=== PATIENT | male | born 1955 | race Caucasian/White ===

== ENCOUNTER → 2016-10-15 | Outpatient (REF) | payer OTHER ==
[2016-10-15 12:37] LABS: ALBUMIN 3.7 GM/DL (3.2-5.2); ALBUMIN/GLOBULIN RATIO 1.12 (1.00-1.93); ALKALINE PHOSPHATASE 111 U/L (45-117); ALT/SGPT 64 U/L (12-78); ANION GAP 13 MEQ/L (8-16); AST/SGOT 43 U/L (15-37); BILIRUBIN,TOTAL 0.6 MG/DL (0.2-1.0); BLOOD UREA NITROGEN 11 MG/DL (7-18); CALCIUM LEVEL 10.5 MG/DL (8.8-10.2); CARBON DIOXIDE LEVEL 24 MEQ/L (21-32); CHLORIDE LEVEL 104 MEQ/L (98-107); GLOMERULAR FILTRATION RATE > 60.0 (>49); GLUCOSE, FASTING 217 MG/DL (80-110); POTASSIUM SERUM 4.2 MEQ/L (3.5-5.1); SODIUM LEVEL 141 MEQ/L (136-145)
[2016-10-15 12:53] LABS: VITAMIN B12 LEVEL 282 PG/ML (247-911)
== END ==
LOC: M SFHCPLAZ 08:11
PROVIDERS: ATTEND Physician Assistant
DX: E11.9 Type 2 diabetes mellitus without complications (principal); Z12.5 Encounter for screening for malignant neoplasm of prostate; E53.8 Deficiency of other specified B group vitamins
CPT/HCPCS: 36415; 80053; 82607; 83036; G0103

== ENCOUNTER → 2017-02-03 | Outpatient (REF) | payer OTHER ==
[2017-02-03 12:22] LABS: ALBUMIN 3.7 GM/DL (3.2-5.2); ALBUMIN/GLOBULIN RATIO 1.09 (1.00-1.93); ALKALINE PHOSPHATASE 110 U/L (45-117); ALT/SGPT 70 U/L (12-78); ANION GAP 8 MEQ/L (8-16); AST/SGOT 38 U/L (15-37); BILIRUBIN,TOTAL 0.6 MG/DL (0.2-1.0); BLOOD UREA NITROGEN 10 MG/DL (7-18); CALCIUM LEVEL 10.4 MG/DL (8.8-10.2); CARBON DIOXIDE LEVEL 27 MEQ/L (21-32); CHLORIDE LEVEL 105 MEQ/L (98-107); CREATININE FOR GFR 0.84 MG/DL (0.70-1.30); GLOMERULAR FILTRATION RATE > 60.0 (>49); GLUCOSE, FASTING 199 MG/DL (80-110); POTASSIUM SERUM 4.2 MEQ/L (3.5-5.1); SODIUM LEVEL 140 MEQ/L (136-145); TOTAL PROTEIN 7.1 GM/DL (6.4-8.2)
== END ==
LOC: M SFHCPLAZ 08:18
PROVIDERS: ATTEND Physician Assistant
DX: E11.9 Type 2 diabetes mellitus without complications (principal)

== ENCOUNTER → 2017-02-08 | Outpatient (REF) | payer OTHER | LOC: M SFHCPLAZ 15:16 | PROVIDERS: ATTEND Physician Assistant | DX: E11.9 Type 2 diabetes mellitus without complications (principal) ==

== ENCOUNTER → 2017-05-02 | Outpatient (REF) | payer OTHER ==
[2017-05-02 12:14] LABS: ALBUMIN 3.8 GM/DL (3.2-5.2); ALBUMIN/GLOBULIN RATIO 1.06 (1.00-1.93); ALKALINE PHOSPHATASE 106 U/L (45-117); ALT/SGPT 56 U/L (12-78); ANION GAP 10 MEQ/L (8-16); AST/SGOT 34 U/L (15-37); BILIRUBIN,TOTAL 0.5 MG/DL (0.2-1.0); BLOOD UREA NITROGEN 9 MG/DL (7-18); CALCIUM LEVEL 10.9 MG/DL (8.8-10.2); CARBON DIOXIDE LEVEL 26 MEQ/L (21-32); CHLORIDE LEVEL 105 MEQ/L (98-107); CREATININE FOR GFR 0.71 MG/DL (0.70-1.30); GLOMERULAR FILTRATION RATE > 60.0 (>49); GLUCOSE, FASTING 170 MG/DL (80-110); POTASSIUM SERUM 4.4 MEQ/L (3.5-5.1); SODIUM LEVEL 141 MEQ/L (136-145); TOTAL PROTEIN 7.4 GM/DL (6.4-8.2)
== END ==
LOC: M SFHCPLAZ 08:36
PROVIDERS: ATTEND Physician Assistant
DX: E11.9 Type 2 diabetes mellitus without complications (principal)

== ENCOUNTER → 2017-08-12 | Outpatient (REF) | payer OTHER ==
[2017-08-12 13:21] LABS: ESTIMATED AVERAGE GLUCOSE 160 MG/DL (60-110); HEMOGLOBIN A1c 7.2 %
[2017-08-12 13:23] LABS: CHOLESTEROL LEVEL 211 MG/DL (<200); CHOLESTEROL RISK RATIO 5.861 (<5); HDL CHOLESTEROL 36 MG/DL (>40); LDL CHOLESTEROL 136.6 MG/DL (<100); NON-HDL-C 175 MG/DL; TRIGLYCERIDES LEVEL 192 MG/DL (<150)
[2017-08-12 14:34] LABS: MALB URINE SIEMENS 24.7 MG/L; MAU/CREAT RATIO 18.1 MCG/MG (0.0-30.0)
== END ==
LOC: M SFHCPLAZ 09:03
DX: E11.65 Type 2 diabetes mellitus with hyperglycemia (principal); E78.2 Mixed hyperlipidemia

== ENCOUNTER → 2018-04-25 | Outpatient (REF) | payer OTHER | LOC: M SFHCPLAZ 13:41 | DX: L98.499 Non-pressure chronic ulcer of skin of other sites with unspecified severity (principal) | CPT/HCPCS: 87205 ==

== ENCOUNTER → 2019-02-02 | Outpatient (REF) | payer OTHER ==
[2019-02-02 10:37] LABS: BLOOD UREA NITROGEN 9 MG/DL (7-18); CALCIUM LEVEL 10.9 MG/DL (8.8-10.2); CARBON DIOXIDE LEVEL 25 MEQ/L (21-32); CHLORIDE LEVEL 106 MEQ/L (98-107); CHOLESTEROL LEVEL 153 MG/DL (<200); CHOLESTEROL RISK RATIO 4.781 (<5); GLOMERULAR FILTRATION RATE > 60.0 (>49); GLUCOSE, FASTING 183 MG/DL (70-100); HDL CHOLESTEROL 32 MG/DL (>40); LDL CHOLESTEROL 65 MG/DL (<100); NON-HDL-C 121 MG/DL; POTASSIUM SERUM 4.1 MEQ/L (3.5-5.1); SODIUM LEVEL 140 MEQ/L (136-145); TRIGLYCERIDES LEVEL 278 MG/DL (<150)
[2019-02-02 11:05] LABS: HEMOGLOBIN A1c 8.8 %
== END ==
LOC: M SFHCPLAZ 08:14
PROVIDERS: ATTEND Family Medicine
DX: E11.9 Type 2 diabetes mellitus without complications (principal)

== ENCOUNTER → 2019-05-14 | Outpatient (REF) | payer MEDICARE, OTHER ==
[2019-05-14 10:55] LABS: HEMOGLOBIN A1c 8.5 %
== END ==
LOC: M SFHCPLAZ 08:20
PROVIDERS: ATTEND Family Medicine
DX: E11.65 Type 2 diabetes mellitus with hyperglycemia (principal)

== ENCOUNTER → 2020-12-03 | Outpatient (REF) | payer MEDICARE | LOC: M SFHCPLAZ 10:44 | PROVIDERS: ATTEND Family Medicine | DX: E11.65 Type 2 diabetes mellitus with hyperglycemia (principal); I10 Essential (primary) hypertension; E83.52 Hypercalcemia; Z86.2 Personal history of diseases of the blood and blood-forming organs and certain disorders involving the immune mechanism ==

== ENCOUNTER → 2021-12-18 | Outpatient (CLI) | payer MEDICARE, MEDICAID ==
[2021-12-18 10:20] LABS: HEMATOCRIT 42.4 % (42.0-52.0); HEMOGLOBIN 14.2 g/dl (13.5-17.5); MEAN CORPUSCULAR HEMOGLOBIN 31.4 pg (27.0-33.0); MEAN CORPUSCULAR HGB CONC 33.5 g/dl (32.0-36.5); MEAN CORPUSCULAR VOLUME 93.8 fl (80.0-96.0); PLATELET COUNT, AUTOMATED 224 10^3/uL (150-450); RED BLOOD COUNT 4.52 10^6/uL (4.30-6.10); WHITE BLOOD COUNT 12.4 10^3/uL (4.0-10.0)
[2021-12-18 11:01] LABS: BLOOD UREA NITROGEN 10 MG/DL (7-18); CALCIUM LEVEL 10.5 MG/DL (8.8-10.2); CARBON DIOXIDE LEVEL 26 MEQ/L (21-32); CHLORIDE LEVEL 107 MEQ/L (98-107); CHOLESTEROL LEVEL 215 MG/DL (<200); CHOLESTEROL RISK RATIO 7.166 (<5); CREATININE FOR GFR 0.92 MG/DL (0.70-1.30); GLOMERULAR FILTRATION RATE > 60.0 (>49); GLUCOSE, FASTING 231 MG/DL (70-100); HDL CHOLESTEROL 30 MG/DL (>40); LDL CHOLESTEROL 107 MG/DL (<100); NON-HDL-C 185 MG/DL; POTASSIUM SERUM 4.1 MEQ/L (3.5-5.1); SODIUM LEVEL 139 MEQ/L (136-145); TRIGLYCERIDES LEVEL 392 MG/DL (<150)
[2021-12-18 11:20] LABS: HEMOGLOBIN A1c 9.1 %
== END ==
LOC: M PLALAB 08:08
PROVIDERS: ATTEND Family Medicine
DX: E11.65 Type 2 diabetes mellitus with hyperglycemia (principal); Z12.5 Encounter for screening for malignant neoplasm of prostate; Z86.2 Personal history of diseases of the blood and blood-forming organs and certain disorders involving the immune mechanism
CPT/HCPCS: 36415; 80048; 80061; 83036; 85027; G0103

== ENCOUNTER 2022-08-13 10:26 | Inpatient (IN) | payer MEDICAID, MEDICARE ==
[~2022-08-13] VITALS: Ht 170.2 cm; Wt 130.1 kg
[2022-08-13 11:36] LABS: BASO # 0.1 10^3/uL (0.0-0.2); BASO % 0.5 % (0.0-1.0); EOS # 0.3 10^3/uL (0.0-0.5); EOS % 1.2 % (0.0-3.0); HEMATOCRIT 43.9 % (42.0-52.0); HEMOGLOBIN 13.7 g/dl (13.5-17.5); LYMPH % 14.3 % (24.0-44.0); MEAN CORPUSCULAR HEMOGLOBIN 29.1 pg (27.0-33.0); MEAN CORPUSCULAR HGB CONC 31.2 g/dl (32.0-36.5); MEAN CORPUSCULAR VOLUME 93.4 fl (80.0-96.0); MONO # 1.2 10^3/uL (0.0-0.8); MONO % 4.2 % (2.0-8.0); NEUTROPHILS # 21.5 10^3/uL (1.5-8.5); NEUTROPHILS % 77.1 % (36.0-66.0); PLATELET COUNT, AUTOMATED 401 10^3/uL (150-450); WHITE BLOOD COUNT 27.8 10^3/uL (4.0-10.0)
[2022-08-13] MEDS ORDERED: cefTRIAXone SOD 2 GM in D5W MINI-BAG PLUS 50 ML IV ONE (11:45)
[2022-08-13 11:46] LABS: ABG BASE EXCESS -4.7 (-2.0-2.0); ABG HCO3 18.2 MEQ/L (22.0-26.0); ABG O2 SATURATION 96.9 % (95.0-99.0); ABG PARTIAL PRESSURE O2 88.9 mmHg (75.0-100.0); ABG STANDARD HCO3 20.6 MEQ/L (22.0-26.0)
[2022-08-13 11:48] LABS: INR 1.18; PROTHROMBIN TIME 15.2 SECONDS (12.5-14.5)
[2022-08-13 11:49] LABS: PARTIAL THROMBOPLASTIN TIME 32.6 SECONDS (24.8-34.2)
[2022-08-13] MEDS ORDERED: NS 4,090 ML in IV 1 EA IV ONE (11:50)
[2022-08-13] MEDS ORDERED: ISOVUE-370 76% 100ML VIAL As Ordered ONE (11:54)
[2022-08-13 12:04] LABS: ALBUMIN 2.4 G/DL (3.2-5.2); ALKALINE PHOSPHATASE 173 U/L (46-116); ALT/SGPT 27 U/L (7.0-40); AST/SGOT 21 U/L (<34); BILIRUBIN,DIRECT 0.3 MG/DL (<0.4); BILIRUBIN,TOTAL 0.6 MG/DL (0.3-1.2); BLOOD UREA NITROGEN 21 MG/DL (9-23); CALCIUM LEVEL 11.2 MG/DL (8.3-10.6); CARBON DIOXIDE LEVEL 21 MMOL/L (20-31); CHLORIDE LEVEL 103 MMOL/L (98-107); CPK CREATINE PHOSPHOKINASE 20 U/L (46-171); CREATININE FOR GFR 1.16 MG/DL (0.70-1.30); GLOMERULAR FILTRATION RATE > 60.0 (>49); GLUCOSE, FASTING 250 MG/DL (74-106); SODIUM LEVEL 137 MMOL/L (136-145); TOTAL PROTEIN 6.4 G/DL (5.7-8.2)
[2022-08-13 12:06] LABS: AMYLASE 19.99999 U/L (30-118)
[2022-08-13 13:22] LABS: APPEARANCE, URINE MANUAL CLOUDY (CLEAR); COLOR, URINE MANUAL AMBER (YELLOW)
[2022-08-13 13:23] LABS: PROTEIN, URINE MANUAL 1+ mg/dL (NEGATIVE); SPECIFIC GRAVITY,URINE MANUAL 1.015 (1.002-1.035)
[2022-08-13 13:24] LABS: BILIRUBIN, URINE MANUAL NEGATIVE (NEGATIVE); BLOOD URINE MANUAL POSITIVE (NEGATIVE); GLUCOSE, URINE (UA) MANUAL NEGATIVE (NEGATIVE); KETONE, URINE MANUAL NEGATIVE (NEGATIVE); LEUKOCYTE ESTERASE, URINE MAN POSITIVE (NEGATIVE); NITRITE, URINE MANUAL NEGATIVE (NEGATIVE); UROBILINOGEN, URINE MANUAL NORMAL (NORMAL)
[2022-08-13 13:48] LABS: RBC, URINE TNTC /hpf (0-3); SQUAMOUS EPITHELIAL CELL URINE SMALL AMOUNT /hpf (SMALL AMT)
[2022-08-13 13:49] LABS: BACTERIA, URINE SMALL AMOUNT; HYALINE CAST, URINE NONE SEEN /lpf (0-1)
[2022-08-13 13:50] LABS: OTHER CRYSTALS, URINE HIPPUR ACID /hpf
[2022-08-13 13:52] LABS: MUCUS, URINE MOD AMOUNT (NEGATIVE)
[2022-08-13] MEDS ORDERED: METO1TAB33 PO (14:38)
[2022-08-13] MEDS ORDERED: XARE20TA PO (14:38)
[2022-08-13] MEDS ORDERED: METF-838 PO (14:38)
[2022-08-13] MEDS ORDERED: GLIP10TA18 PO (14:38)
[2022-08-13] MEDS ORDERED: HOME MED LIST COMPLETE! XX SCH (14:40)
[2022-08-13] MEDS ORDERED: GLUCAGON INJ 1MG VIAL SC PRN (15:15)
[2022-08-13] MEDS ORDERED: GLUCOSE 4GM CHEW TABLET PO PRN (15:15)
[2022-08-13] MEDS ORDERED: DEXTROSE 50% 50ML SYRINGE IV PRN (15:15)
[2022-08-13] MEDS: METOPROLOL SUCC (TopROL XL) 100MG *XL* TAB PO SCH (15:42)
[2022-08-13] MEDS: NS 1,000 ML IV SCH (15:44)
[2022-08-13 16:02] LABS: HEMOGLOBIN A1c 6.9 % (4.0-6.0)
[2022-08-13 16:13] LABS: CHOLESTEROL RISK RATIO 5.9 (<5); HDL CHOLESTEROL 21.5 MG/DL (>40); LDL CHOLESTEROL 73.7 MG/DL (<100)
[2022-08-13] MEDS ORDERED: LEVALBUTEROL 1.25MG 0.5ML CONCENTRATE NEB NEB PRN (16:30)
[2022-08-13] MEDS: LEVALBUTEROL 1.25MG 0.5ML CONCENTRATE NEB NEB SCH ×2 (16:57→19:52)
[2022-08-13] MEDS: PIPERACILLIN/TAZOBACTAM SOD 3.375 GM in D5W MINI-BAG PLUS 50 ML IV SCH ×2 (17:22→21:45)
[2022-08-13 17:58] VITALS: BP 104/60
[2022-08-13] MEDS: INSULIN LISPRO (NovoLOG) PER UNIT SC SCH ×2 (18:37→21:00)
[2022-08-13] MEDS: ENOXAPARIN 150MG/ML SYRINGE SC SCH (18:38)
[2022-08-13] MEDS: LACTOBACILLUS ACIDOPHILUS CAP (BACID) PO SCH (18:38)
[2022-08-13 20:00] VITALS: BP 94/51
[2022-08-13 21:39] LABS: ALKALINE PHOSPHATASE 122 U/L (46-116); ALT/SGPT 19 U/L (7.0-40); AST/SGOT 19 U/L (<34); BILIRUBIN,TOTAL 0.3 MG/DL (0.3-1.2); BLOOD UREA NITROGEN 10 MG/DL (9-23); CARBON DIOXIDE LEVEL 18 MMOL/L (20-31); CHLORIDE LEVEL 112 MMOL/L (98-107); CREATININE FOR GFR 1.05 MG/DL (0.70-1.30); GLOMERULAR FILTRATION RATE > 60.0 (>49); GLUCOSE, FASTING 207 MG/DL (74-106); POTASSIUM SERUM 3.5 MMOL/L (3.5-5.1); SODIUM LEVEL 139 MMOL/L (136-145); TOTAL PROTEIN 5.2 G/DL (5.7-8.2)
[2022-08-13] MEDS: CALCITONIN SALMON (MIACALCIN) 400INTERNATIONAL UNITS/2ML VIAL SQ SCH (21:43)
[2022-08-13] MEDS: DOXYCYCLINE HYCLATE 100MG TABLET PO SCH (21:43)
[2022-08-13] MEDS: NYSTATIN 100,000 UNITS/GM TOPICAL PWD 15GM TOP SCH (21:44)
[2022-08-13] MEDS: VANICREAM MOISTURIZING SKIN CREAM 113GM TUBE TOP SCH (21:44)
[2022-08-14] VITALS (7 sets, daily range): BP systolic 83–102; BP diastolic 50–66
[2022-08-14] MEDS: NS 1,000 ML IV SCH ×4 (00:27→22:09)
[2022-08-14 05:13] LABS: HEMATOCRIT 33.8 % (42.0-52.0); MEAN CORPUSCULAR HEMOGLOBIN 29.4 pg (27.0-33.0); MEAN CORPUSCULAR HGB CONC 31.7 g/dl (32.0-36.5); MEAN CORPUSCULAR VOLUME 92.9 fl (80.0-96.0); RED BLOOD COUNT 3.64 10^6/uL (4.30-6.10); WHITE BLOOD COUNT 14.5 10^3/uL (4.0-10.0)
[2022-08-14] MEDS: ENOXAPARIN 150MG/ML SYRINGE SC SCH ×2 (05:14→16:00)
[2022-08-14] MEDS: PIPERACILLIN/TAZOBACTAM SOD 3.375 GM in D5W MINI-BAG PLUS 50 ML IV SCH ×4 (05:15→22:08)
[2022-08-14 05:17] LABS: HEMOGLOBIN 10.7 g/dl (13.5-17.5); PLATELET COUNT, AUTOMATED 227 10^3/uL (150-450)
[2022-08-14 05:27] LABS: ALBUMIN 2.1 G/DL (3.2-5.2); ALKALINE PHOSPHATASE 127 U/L (46-116); ALT/SGPT 20 U/L (7.0-40); AST/SGOT 18 U/L (<34); BILIRUBIN,TOTAL 0.3 MG/DL (0.3-1.2); BLOOD UREA NITROGEN 12 MG/DL (9-23); CALCIUM LEVEL 8.9 MG/DL (8.3-10.6); CARBON DIOXIDE LEVEL 19 MMOL/L (20-31); CHLORIDE LEVEL 113 MMOL/L (98-107); CREATININE FOR GFR 0.99 MG/DL (0.70-1.30); GLOMERULAR FILTRATION RATE > 60.0 (>49); GLUCOSE, FASTING 156 MG/DL (74-106); POTASSIUM SERUM 3.4 MMOL/L (3.5-5.1); SODIUM LEVEL 141 MMOL/L (136-145); TOTAL PROTEIN 5.3 G/DL (5.7-8.2)
[2022-08-14] MEDS ORDERED: POTASSIUM CHLORIDE 10MEQ SR TABLET PO ONE (07:25)
[2022-08-14] MEDS: LACTOBACILLUS ACIDOPHILUS CAP (BACID) PO SCH ×2 (08:00→17:22)
[2022-08-14] MEDS: LEVALBUTEROL 1.25MG 0.5ML CONCENTRATE NEB NEB SCH ×4 (08:13→20:08)
[2022-08-14] MEDS: INSULIN LISPRO (NovoLOG) PER UNIT SC SCH ×4 (09:09→21:00)
[2022-08-14] MEDS: METOPROLOL SUCC (TopROL XL) 100MG *XL* TAB PO SCH (09:10)
[2022-08-14] MEDS: CALCITONIN SALMON (MIACALCIN) 400INTERNATIONAL UNITS/2ML VIAL SQ SCH ×2 (09:11→22:08)
[2022-08-14] MEDS: DOXYCYCLINE HYCLATE 100MG TABLET PO SCH ×2 (09:11→22:08)
[2022-08-14] MEDS: VANICREAM MOISTURIZING SKIN CREAM 113GM TUBE TOP SCH ×2 (09:12→22:09)
[2022-08-14] MEDS: NYSTATIN 100,000 UNITS/GM TOPICAL PWD 15GM TOP SCH ×2 (09:12→22:08)
[2022-08-14] MEDS ORDERED: NS 500 ML IV ONE (17:00)
[2022-08-15] VITALS: BP 108/57
[2022-08-15 04:00] VITALS: BP 104/59
[2022-08-15] MEDS: PIPERACILLIN/TAZOBACTAM SOD 3.375 GM in D5W MINI-BAG PLUS 50 ML IV SCH ×4 (04:01→21:52)
[2022-08-15] MEDS: ENOXAPARIN 150MG/ML SYRINGE SC SCH ×2 (04:01→17:42)
[2022-08-15 06:11] LABS: HEMATOCRIT 31.9 % (42.0-52.0); HEMOGLOBIN 9.9 g/dl (13.5-17.5); MEAN CORPUSCULAR HEMOGLOBIN 29.5 pg (27.0-33.0); MEAN CORPUSCULAR VOLUME 94.9 fl (80.0-96.0); PLATELET COUNT, AUTOMATED 218 10^3/uL (150-450); RED BLOOD COUNT 3.36 10^6/uL (4.30-6.10); WHITE BLOOD COUNT 12.7 10^3/uL (4.0-10.0)
[2022-08-15 06:38] LABS: ALBUMIN 1.7 G/DL (3.2-5.2); ALKALINE PHOSPHATASE 140 U/L (46-116); ALT/SGPT 26 U/L (7.0-40); AST/SGOT 22 U/L (<34); BILIRUBIN,TOTAL 0.4 MG/DL (0.3-1.2); BLOOD UREA NITROGEN 13 MG/DL (9-23); CALCIUM LEVEL 8.2 MG/DL (8.3-10.6); CARBON DIOXIDE LEVEL 18 MMOL/L (20-31); CHLORIDE LEVEL 116 MMOL/L (98-107); CREATININE FOR GFR 1.11 MG/DL (0.70-1.30); GLOMERULAR FILTRATION RATE > 60.0 (>49); GLUCOSE, FASTING 161 MG/DL (74-106); POTASSIUM SERUM 3.8 MMOL/L (3.5-5.1); SODIUM LEVEL 146 MMOL/L (136-145); TOTAL PROTEIN 4.7 G/DL (5.7-8.2)
[2022-08-15 07:51] VITALS: BP 95/50
[2022-08-15] MEDS: DOXYCYCLINE HYCLATE 100MG TABLET PO SCH ×2 (08:39→21:53)
[2022-08-15] MEDS: LACTOBACILLUS ACIDOPHILUS CAP (BACID) PO SCH ×2 (08:39→17:42)
[2022-08-15] MEDS: INSULIN LISPRO (NovoLOG) PER UNIT SC SCH ×4 (08:39→21:00)
[2022-08-15] MEDS: NYSTATIN 100,000 UNITS/GM TOPICAL PWD 15GM TOP SCH ×2 (08:40→21:53)
[2022-08-15] MEDS: VANICREAM MOISTURIZING SKIN CREAM 113GM TUBE TOP SCH ×2 (08:41→21:53)
[2022-08-15] MEDS: LEVALBUTEROL 1.25MG 0.5ML CONCENTRATE NEB NEB SCH (08:42)
[2022-08-15] MEDS: CALCITONIN SALMON (MIACALCIN) 400INTERNATIONAL UNITS/2ML VIAL SQ SCH (08:49)
[2022-08-15] MEDS ORDERED: LEVEMIR (INSULIN DETEMIR) 1 UNITS/0.01ML SC SCH (09:00)
[2022-08-15] MEDS ORDERED: METOPROLOL SUCC (TopROL XL) 100MG *XL* TAB PO SCH (09:00)
[2022-08-15 11:58] VITALS: BP 102/59
[2022-08-15] MEDS ORDERED: NS 1,000 ML IV ONE (12:30)
[2022-08-15 16:11] VITALS: BP 97/52
[2022-08-15 19:49] VITALS: BP 103/59
[2022-08-15] MEDS: METOPROLOL TART 12.5 MG PER 1/2 TAB PO SCH ×2 (21:00→21:57)
[2022-08-16 00:05] VITALS: BP 96/53
[2022-08-16] MEDS: PIPERACILLIN/TAZOBACTAM SOD 3.375 GM in D5W MINI-BAG PLUS 50 ML IV SCH (03:17)
[2022-08-16] MEDS: ENOXAPARIN 150MG/ML SYRINGE SC SCH ×2 (03:31→18:09)
[2022-08-16 04:00] VITALS: BP 98/53
[2022-08-16 05:05] LABS: HEMATOCRIT 34.1 % (42.0-52.0); HEMOGLOBIN 10.5 g/dl (13.5-17.5); MEAN CORPUSCULAR HEMOGLOBIN 28.8 pg (27.0-33.0); MEAN CORPUSCULAR HGB CONC 30.8 g/dl (32.0-36.5); MEAN CORPUSCULAR VOLUME 93.7 fl (80.0-96.0); PLATELET COUNT, AUTOMATED 240 10^3/uL (150-450); RED BLOOD COUNT 3.64 10^6/uL (4.30-6.10); WHITE BLOOD COUNT 14.1 10^3/uL (4.0-10.0)
[2022-08-16 05:36] LABS: ALBUMIN 1.8 G/DL (3.2-5.2); ALKALINE PHOSPHATASE 155 U/L (46-116); ALT/SGPT 33 U/L (7.0-40); AST/SGOT 31 U/L (<34); BILIRUBIN,TOTAL 0.5 MG/DL (0.3-1.2); BLOOD UREA NITROGEN 9 MG/DL (9-23); CALCIUM LEVEL 8.1 MG/DL (8.3-10.6); CARBON DIOXIDE LEVEL 21 MMOL/L (20-31); CHLORIDE LEVEL 114 MMOL/L (98-107); CREATININE FOR GFR 1.02 MG/DL (0.70-1.30); GLOMERULAR FILTRATION RATE > 60.0 (>49); GLUCOSE, FASTING 99 MG/DL (74-106); POTASSIUM SERUM 3.5 MMOL/L (3.5-5.1); SODIUM LEVEL 145 MMOL/L (136-145); TOTAL PROTEIN 4.9 G/DL (5.7-8.2)
[2022-08-16] MEDS: INSULIN LISPRO (NovoLOG) PER UNIT SC SCH ×4 (07:30→19:31)
[2022-08-16 08:00] VITALS: BP 109/58
[2022-08-16] MEDS: METOPROLOL TART 12.5 MG PER 1/2 TAB PO SCH ×2 (08:12→20:56)
[2022-08-16] MEDS: LACTOBACILLUS ACIDOPHILUS CAP (BACID) PO SCH ×2 (08:13→18:08)
[2022-08-16] MEDS: NYSTATIN 100,000 UNITS/GM TOPICAL PWD 15GM TOP SCH ×2 (08:13→20:56)
[2022-08-16] MEDS: DOXYCYCLINE HYCLATE 100MG TABLET PO SCH ×2 (08:13→20:56)
[2022-08-16] MEDS: VANICREAM MOISTURIZING SKIN CREAM 113GM TUBE TOP SCH ×2 (08:14→20:56)
[2022-08-16] MEDS: CEFUROXIME 500 MG TAB PO SCH ×2 (10:35→20:56)
[2022-08-16 16:00] VITALS: BP 123/58
[2022-08-16] MEDS: CALCIUM CARBONATE 500 MG CHEW U/D PO PRN (16:27)
[2022-08-16] MEDS: PANTOPRAZOLE 40MG TAB (PROTONIX) PO SCH (16:27)
[2022-08-16] MEDS ORDERED: ENOXAPARIN 150MG/ML SYRINGE SC SCH (18:00)
[2022-08-16 20:00] VITALS: BP 101/56
[2022-08-17] VITALS (9 sets, daily range): BP systolic 98–144; BP diastolic 50–81
[2022-08-17 05:46] LABS: HEMATOCRIT 33.5 % (42.0-52.0); HEMOGLOBIN 10.4 g/dl (13.5-17.5); MEAN CORPUSCULAR HEMOGLOBIN 29.2 pg (27.0-33.0); MEAN CORPUSCULAR VOLUME 94.1 fl (80.0-96.0); PLATELET COUNT, AUTOMATED 239 10^3/uL (150-450); RED BLOOD COUNT 3.56 10^6/uL (4.30-6.10)
[2022-08-17 06:13] LABS: ALBUMIN 1.7 G/DL (3.2-5.2); ALKALINE PHOSPHATASE 142 U/L (46-116); ALT/SGPT 31 U/L (7.0-40); AST/SGOT 22 U/L (<34); BILIRUBIN,TOTAL 0.3 MG/DL (0.3-1.2); BLOOD UREA NITROGEN 10 MG/DL (9-23); CALCIUM LEVEL 8.4 MG/DL (8.3-10.6); CARBON DIOXIDE LEVEL 21 MMOL/L (20-31); CHLORIDE LEVEL 113 MMOL/L (98-107); CREATININE FOR GFR 0.92 MG/DL (0.70-1.30); GLOMERULAR FILTRATION RATE > 60.0 (>49); GLUCOSE, FASTING 101 MG/DL (74-106); POTASSIUM SERUM 3.6 MMOL/L (3.5-5.1); SODIUM LEVEL 143 MMOL/L (136-145); TOTAL PROTEIN 4.7 G/DL (5.7-8.2)
[2022-08-17] MEDS: INSULIN LISPRO (NovoLOG) PER UNIT SC SCH ×2 (07:30→12:00)
[2022-08-17] MEDS: LACTOBACILLUS ACIDOPHILUS CAP (BACID) PO SCH ×2 (08:16→17:57)
[2022-08-17] MEDS: CEFUROXIME 500 MG TAB PO SCH ×2 (08:16→20:48)
[2022-08-17] MEDS: METOPROLOL TART 12.5 MG PER 1/2 TAB PO SCH (08:16)
[2022-08-17] MEDS: DOXYCYCLINE HYCLATE 100MG TABLET PO SCH ×2 (08:17→20:48)
[2022-08-17] MEDS: VANICREAM MOISTURIZING SKIN CREAM 113GM TUBE TOP SCH ×2 (08:17→20:49)
[2022-08-17] MEDS: PANTOPRAZOLE 40MG TAB (PROTONIX) PO SCH (08:17)
[2022-08-17] MEDS: NYSTATIN 100,000 UNITS/GM TOPICAL PWD 15GM TOP SCH ×2 (08:17→20:49)
[2022-08-17] MEDS ORDERED: LIDOCAINE 1% MDV 20ML VIAL As Ordered ONE (13:59)
[2022-08-17] MEDS: ENOXAPARIN 150MG/ML SYRINGE SC SCH (20:00)
[2022-08-17] MEDS ORDERED: METOPROLOL TART 25 MG TABLET PO SCH (21:00)
[2022-08-18] VITALS (9 sets, daily range): BP systolic 86–118; BP diastolic 51–70
[2022-08-18 05:41] LABS: BASO % 0.3 % (0.0-1.0); EOS # 0.2 10^3/uL (0.0-0.5); EOS % 1.6 % (0.0-3.0); HEMATOCRIT 33.8 % (42.0-52.0); HEMOGLOBIN 10.4 g/dl (13.5-17.5); LYMPH # 2.3 10^3/uL (1.5-5.0); LYMPH % 16.6 % (24.0-44.0); MEAN CORPUSCULAR HEMOGLOBIN 28.8 pg (27.0-33.0); MEAN CORPUSCULAR HGB CONC 30.8 g/dl (32.0-36.5); MEAN CORPUSCULAR VOLUME 93.6 fl (80.0-96.0); MONO # 0.7 10^3/uL (0.0-0.8); MONO % 5.2 % (2.0-8.0); NEUTROPHILS # 10.4 10^3/uL (1.5-8.5); NEUTROPHILS % 73.9 % (36.0-66.0); PLATELET COUNT, AUTOMATED 233 10^3/uL (150-450); RED BLOOD COUNT 3.61 10^6/uL (4.30-6.10)
[2022-08-18 06:05] LABS: BLOOD UREA NITROGEN 13 MG/DL (9-23); CALCIUM LEVEL 8.6 MG/DL (8.3-10.6); CARBON DIOXIDE LEVEL 22 MMOL/L (20-31); CHLORIDE LEVEL 111 MMOL/L (98-107); CREATININE FOR GFR 0.95 MG/DL (0.70-1.30); GLOMERULAR FILTRATION RATE > 60.0 (>49); GLUCOSE, FASTING 112 MG/DL (74-106); POTASSIUM SERUM 3.3 MMOL/L (3.5-5.1); SODIUM LEVEL 142 MMOL/L (136-145)
[2022-08-18] MEDS: ENOXAPARIN 150MG/ML SYRINGE SC SCH ×2 (06:35→18:05)
[2022-08-18] MEDS: LACTOBACILLUS ACIDOPHILUS CAP (BACID) PO SCH ×2 (10:15→18:04)
[2022-08-18] MEDS: METOPROLOL TART 12.5 MG PER 1/2 TAB PO SCH ×2 (10:30→20:05)
[2022-08-18] MEDS: DOXYCYCLINE HYCLATE 100MG TABLET PO SCH ×2 (10:31→20:12)
[2022-08-18] MEDS: PANTOPRAZOLE 40MG TAB (PROTONIX) PO SCH (10:31)
[2022-08-18] MEDS: CEFUROXIME 500 MG TAB PO SCH ×2 (10:31→20:12)
[2022-08-18] MEDS: VANICREAM MOISTURIZING SKIN CREAM 113GM TUBE TOP SCH ×2 (10:33→20:14)
[2022-08-18] MEDS: NYSTATIN 100,000 UNITS/GM TOPICAL PWD 15GM TOP SCH ×2 (10:33→20:05)
[2022-08-18] MEDS ORDERED: POTASSIUM CHLORIDE 10MEQ SR TABLET PO ONE (13:50)
[2022-08-18] MEDS: LIDOCAINE 4% TOPICAL SOLN 50 ML BTL TOP SCH (16:53)
[2022-08-19] VITALS: BP 96/61
[2022-08-19 05:00] VITALS: BP 105/65
[2022-08-19 05:19] LABS: BASO % 0.2 % (0.0-1.0); EOS # 0.3 10^3/uL (0.0-0.5); EOS % 1.8 % (0.0-3.0); HEMATOCRIT 33.6 % (42.0-52.0); HEMOGLOBIN 10.4 g/dl (13.5-17.5); LYMPH # 2.6 10^3/uL (1.5-5.0); MEAN CORPUSCULAR HEMOGLOBIN 29.3 pg (27.0-33.0); MEAN CORPUSCULAR VOLUME 94.6 fl (80.0-96.0); MONO # 0.7 10^3/uL (0.0-0.8); MONO % 5.3 % (2.0-8.0); NEUTROPHILS # 9.8 10^3/uL (1.5-8.5); NEUTROPHILS % 71.7 % (36.0-66.0); PLATELET COUNT, AUTOMATED 221 10^3/uL (150-450); RED BLOOD COUNT 3.55 10^6/uL (4.30-6.10); WHITE BLOOD COUNT 13.7 10^3/uL (4.0-10.0)
[2022-08-19 05:38] LABS: BLOOD UREA NITROGEN 10 MG/DL (9-23); CALCIUM LEVEL 8.4 MG/DL (8.3-10.6); CARBON DIOXIDE LEVEL 22 MMOL/L (20-31); CHLORIDE LEVEL 111 MMOL/L (98-107); GLOMERULAR FILTRATION RATE > 60.0 (>49); GLUCOSE, FASTING 106 MG/DL (74-106); POTASSIUM SERUM 3.7 MMOL/L (3.5-5.1); SODIUM LEVEL 141 MMOL/L (136-145)
[2022-08-19] MEDS: ENOXAPARIN 150MG/ML SYRINGE SC SCH (06:13)
[2022-08-19 07:54] VITALS: BP 107/55
[2022-08-19 08:24] VITALS: BP 107/55
[2022-08-19] MEDS: METOPROLOL TART 12.5 MG PER 1/2 TAB PO SCH (08:24)
[2022-08-19] MEDS: CEFUROXIME 500 MG TAB PO SCH ×2 (08:36→22:25)
[2022-08-19] MEDS: LACTOBACILLUS ACIDOPHILUS CAP (BACID) PO SCH ×2 (08:36→17:47)
[2022-08-19] MEDS: LIDOCAINE 4% TOPICAL SOLN 50 ML BTL TOP SCH (08:36)
[2022-08-19] MEDS: PANTOPRAZOLE 40MG TAB (PROTONIX) PO SCH (08:36)
[2022-08-19] MEDS: VANICREAM MOISTURIZING SKIN CREAM 113GM TUBE TOP SCH ×2 (08:37→22:26)
[2022-08-19] MEDS: DOXYCYCLINE HYCLATE 100MG TABLET PO SCH ×2 (08:37→22:25)
[2022-08-19] MEDS: NYSTATIN 100,000 UNITS/GM TOPICAL PWD 15GM TOP SCH ×2 (08:37→21:00)
[2022-08-19 12:00] VITALS: BP 109/68
[2022-08-19] MEDS: DIGOXIN 0.25 MG TAB PO SCH ×3 (12:17→22:26)
[2022-08-19 16:00] VITALS: BP 108/58
[2022-08-19] MEDS: ACETAMINOPHEN TAB 650MG DOSE (2X325MG) PO PRN (17:47)
[2022-08-19] MEDS: RIVAROXABAN 20MG TAB (XARELTO) PO SCH (17:49)
[2022-08-20 00:12] LABS: APPEARANCE, URINE MANUAL TURBID (CLEAR); COLOR, URINE MANUAL BROWN (YELLOW); PH,URINE MAN 5.5 UNITS (5.0 - 7.0)
[2022-08-20 00:13] LABS: BILIRUBIN, URINE MANUAL OBSCURED (NEGATIVE); BLOOD URINE MANUAL OBSCURED (NEGATIVE); GLUCOSE, URINE (UA) MANUAL OBSCURED mg/dL (NEGATIVE); KETONE, URINE MANUAL OBSCURED mg/dL (NEGATIVE); LEUKOCYTE ESTERASE, URINE MAN OBSCURED (NEGATIVE); NITRITE, URINE MANUAL OBSCURED (NEGATIVE); PROTEIN, URINE MANUAL OBSCURED mg/dL (NEGATIVE); SPECIFIC GRAVITY,URINE MANUAL 1.025 (1.002-1.035); UROBILINOGEN, URINE MANUAL OBSCURED mg/dl (NORMAL)
[2022-08-20 00:24] LABS: RBC, URINE TNTC /hpf (0-3); SQUAMOUS EPITHELIAL CELL URINE SMALL AMOUNT /hpf (SMALL AMT)
[2022-08-20 00:26] LABS: CALCIUM OXALATE CRYSTALS,URINE SMALL AMOUNT /hpf; HYALINE CAST, URINE NONE SEEN /lpf (0-1)
[2022-08-20 00:27] LABS: BACTERIA, URINE MOD AMOUNT
[2022-08-20 04:24] LABS: BASO % 0.3 % (0.0-1.0); EOS # 0.2 10^3/uL (0.0-0.5); EOS % 1.7 % (0.0-3.0); HEMOGLOBIN 10.2 g/dl (13.5-17.5); LYMPH # 2.3 10^3/uL (1.5-5.0); LYMPH % 17.4 % (24.0-44.0); MEAN CORPUSCULAR HGB CONC 30.9 g/dl (32.0-36.5); MEAN CORPUSCULAR VOLUME 93.8 fl (80.0-96.0); MONO # 0.7 10^3/uL (0.0-0.8); MONO % 5.1 % (2.0-8.0); NEUTROPHILS # 9.8 10^3/uL (1.5-8.5); NEUTROPHILS % 73.5 % (36.0-66.0); PLATELET COUNT, AUTOMATED 233 10^3/uL (150-450); RED BLOOD COUNT 3.52 10^6/uL (4.30-6.10); WHITE BLOOD COUNT 13.3 10^3/uL (4.0-10.0)
[2022-08-20 04:44] LABS: BLOOD UREA NITROGEN 11 MG/DL (9-23); CALCIUM LEVEL 8.5 MG/DL (8.3-10.6); CARBON DIOXIDE LEVEL 22 MMOL/L (20-31); CHLORIDE LEVEL 112 MMOL/L (98-107); CREATININE FOR GFR 0.91 MG/DL (0.70-1.30); GLOMERULAR FILTRATION RATE > 60.0 (>49); GLUCOSE, FASTING 151 MG/DL (74-106); POTASSIUM SERUM 3.5 MMOL/L (3.5-5.1); SODIUM LEVEL 141 MMOL/L (136-145)
[2022-08-20] MEDS: DIGOXIN 0.25 MG TAB PO SCH (05:05)
[2022-08-20 07:55] VITALS: BP 121/64
[2022-08-20] MEDS: LACTOBACILLUS ACIDOPHILUS CAP (BACID) PO SCH ×2 (08:44→19:20)
[2022-08-20] MEDS: VANICREAM MOISTURIZING SKIN CREAM 113GM TUBE TOP SCH ×2 (08:44→22:15)
[2022-08-20] MEDS: PANTOPRAZOLE 40MG TAB (PROTONIX) PO SCH (08:44)
[2022-08-20] MEDS: DOXYCYCLINE HYCLATE 100MG TABLET PO SCH (08:44)
[2022-08-20] MEDS: CEFUROXIME 500 MG TAB PO SCH (08:44)
[2022-08-20] MEDS: LIDOCAINE 4% TOPICAL SOLN 50 ML BTL TOP SCH (08:45)
[2022-08-20] MEDS: NYSTATIN 100,000 UNITS/GM TOPICAL PWD 15GM TOP SCH ×2 (08:45→22:14)
[2022-08-20 12:00] VITALS: BP 103/54
[2022-08-20] MEDS: RIVAROXABAN 20MG TAB (XARELTO) PO SCH (19:20)
[2022-08-20 20:29] VITALS: BP 98/55
[2022-08-21 00:37] VITALS: BP 107/57
[2022-08-21 04:08] LABS: BASO % 0.3 % (0.0-1.0); EOS # 0.2 10^3/uL (0.0-0.5); EOS % 1.6 % (0.0-3.0); HEMATOCRIT 33.2 % (42.0-52.0); HEMOGLOBIN 10.4 g/dl (13.5-17.5); LYMPH # 2.3 10^3/uL (1.5-5.0); LYMPH % 16.9 % (24.0-44.0); MEAN CORPUSCULAR HEMOGLOBIN 29.1 pg (27.0-33.0); MEAN CORPUSCULAR HGB CONC 31.3 g/dl (32.0-36.5); MEAN CORPUSCULAR VOLUME 92.7 fl (80.0-96.0); MONO # 0.6 10^3/uL (0.0-0.8); MONO % 4.4 % (2.0-8.0); NEUTROPHILS # 10.2 10^3/uL (1.5-8.5); PLATELET COUNT, AUTOMATED 232 10^3/uL (150-450); RED BLOOD COUNT 3.58 10^6/uL (4.30-6.10); WHITE BLOOD COUNT 13.6 10^3/uL (4.0-10.0)
[2022-08-21 04:35] LABS: BLOOD UREA NITROGEN 11 MG/DL (9-23); CALCIUM LEVEL 9.1 MG/DL (8.3-10.6); CARBON DIOXIDE LEVEL 22 MMOL/L (20-31); CHLORIDE LEVEL 111 MMOL/L (98-107); CREATININE FOR GFR 0.91 MG/DL (0.70-1.30); GLOMERULAR FILTRATION RATE > 60.0 (>49); GLUCOSE, FASTING 128 MG/DL (74-106); POTASSIUM SERUM 3.6 MMOL/L (3.5-5.1); SODIUM LEVEL 141 MMOL/L (136-145)
[2022-08-21 04:56] VITALS: BP 100/57
[2022-08-21 08:00] VITALS: BP 103/66
[2022-08-21] MEDS: PANTOPRAZOLE 40MG TAB (PROTONIX) PO SCH (09:10)
[2022-08-21] MEDS: LACTOBACILLUS ACIDOPHILUS CAP (BACID) PO SCH ×2 (09:10→18:07)
[2022-08-21] MEDS: DIGOXIN 0.25 MG TAB PO SCH (09:11)
[2022-08-21] MEDS: NYSTATIN 100,000 UNITS/GM TOPICAL PWD 15GM TOP SCH ×2 (09:12→20:10)
[2022-08-21] MEDS: VANICREAM MOISTURIZING SKIN CREAM 113GM TUBE TOP SCH ×2 (09:12→20:10)
[2022-08-21] MEDS: LIDOCAINE 4% TOPICAL SOLN 50 ML BTL TOP SCH (09:13)
[2022-08-21 16:52] VITALS: BP 110/62
[2022-08-21] MEDS: RIVAROXABAN 20MG TAB (XARELTO) PO SCH (18:07)
[2022-08-21 20:49] VITALS: BP 108/56
[2022-08-22 04:58] VITALS: BP 113/56
[2022-08-22 05:35] LABS: BASO % 0.2 % (0.0-1.0); EOS # 0.2 10^3/uL (0.0-0.5); EOS % 1.4 % (0.0-3.0); HEMATOCRIT 34.4 % (42.0-52.0); HEMOGLOBIN 10.5 g/dl (13.5-17.5); LYMPH # 2.5 10^3/uL (1.5-5.0); LYMPH % 19.3 % (24.0-44.0); MEAN CORPUSCULAR HEMOGLOBIN 28.6 pg (27.0-33.0); MEAN CORPUSCULAR HGB CONC 30.5 g/dl (32.0-36.5); MEAN CORPUSCULAR VOLUME 93.7 fl (80.0-96.0); MONO # 0.6 10^3/uL (0.0-0.8); MONO % 4.9 % (2.0-8.0); NEUTROPHILS # 9.3 10^3/uL (1.5-8.5); NEUTROPHILS % 72.6 % (36.0-66.0); PLATELET COUNT, AUTOMATED 233 10^3/uL (150-450); RED BLOOD COUNT 3.67 10^6/uL (4.30-6.10); WHITE BLOOD COUNT 12.8 10^3/uL (4.0-10.0)
[2022-08-22 06:01] LABS: BLOOD UREA NITROGEN 12 MG/DL (9-23); CALCIUM LEVEL 9.1 MG/DL (8.3-10.6); CARBON DIOXIDE LEVEL 23 MMOL/L (20-31); CHLORIDE LEVEL 111 MMOL/L (98-107); CREATININE FOR GFR 0.87 MG/DL (0.70-1.30); GLOMERULAR FILTRATION RATE > 60.0 (>49); GLUCOSE, FASTING 123 MG/DL (74-106); POTASSIUM SERUM 3.8 MMOL/L (3.5-5.1); SODIUM LEVEL 141 MMOL/L (136-145)
[2022-08-22 07:57] VITALS: BP 107/60
[2022-08-22] MEDS: PANTOPRAZOLE 40MG TAB (PROTONIX) PO SCH (09:01)
[2022-08-22] MEDS: DIGOXIN 0.25 MG TAB PO SCH (09:02)
[2022-08-22] MEDS: LIDOCAINE 4% TOPICAL SOLN 50 ML BTL TOP SCH (09:02)
[2022-08-22] MEDS: LACTOBACILLUS ACIDOPHILUS CAP (BACID) PO SCH ×2 (09:02→17:25)
[2022-08-22] MEDS: NYSTATIN 100,000 UNITS/GM TOPICAL PWD 15GM TOP SCH ×2 (09:03→20:18)
[2022-08-22] MEDS: VANICREAM MOISTURIZING SKIN CREAM 113GM TUBE TOP SCH ×2 (09:03→20:18)
[2022-08-22 16:24] VITALS: BP 121/63
[2022-08-22] MEDS: RIVAROXABAN 20MG TAB (XARELTO) PO SCH (17:25)
[2022-08-22 20:00] VITALS: BP 113/56
[2022-08-23 04:00] VITALS: BP 118/57
[2022-08-23] MEDS: LACTOBACILLUS ACIDOPHILUS CAP (BACID) PO SCH ×2 (08:53→17:07)
[2022-08-23] MEDS: PANTOPRAZOLE 40MG TAB (PROTONIX) PO SCH (08:53)
[2022-08-23] MEDS: LIDOCAINE 4% TOPICAL SOLN 50 ML BTL TOP SCH ×3 (08:53→18:07)
[2022-08-23] MEDS: DIGOXIN 0.25 MG TAB PO SCH (08:53)
[2022-08-23] MEDS: VANICREAM MOISTURIZING SKIN CREAM 113GM TUBE TOP SCH ×2 (08:54→21:36)
[2022-08-23] MEDS: NYSTATIN 100,000 UNITS/GM TOPICAL PWD 15GM TOP SCH ×2 (08:54→21:37)
[2022-08-23] MEDS: RIVAROXABAN 20MG TAB (XARELTO) PO SCH (17:07)
[2022-08-23 20:00] VITALS: BP 108/55
[2022-08-24] MEDS: PANTOPRAZOLE 40MG TAB (PROTONIX) PO SCH (08:31)
[2022-08-24] MEDS: DIGOXIN 0.25 MG TAB PO SCH (08:31)
[2022-08-24] MEDS: LACTOBACILLUS ACIDOPHILUS CAP (BACID) PO SCH ×2 (08:31→17:35)
[2022-08-24] MEDS: NYSTATIN 100,000 UNITS/GM TOPICAL PWD 15GM TOP SCH ×2 (08:33→20:36)
[2022-08-24] MEDS: VANICREAM MOISTURIZING SKIN CREAM 113GM TUBE TOP SCH ×2 (08:34→20:36)
[2022-08-24 08:36] VITALS: BP 111/56
[2022-08-24 08:54] LABS: HEMATOCRIT 34.3 % (42.0-52.0); HEMOGLOBIN 10.4 g/dl (13.5-17.5); MEAN CORPUSCULAR HEMOGLOBIN 28.9 pg (27.0-33.0); MEAN CORPUSCULAR HGB CONC 30.3 g/dl (32.0-36.5); MEAN CORPUSCULAR VOLUME 95.3 fl (80.0-96.0); PLATELET COUNT, AUTOMATED 226 10^3/uL (150-450); WHITE BLOOD COUNT 10.6 10^3/uL (4.0-10.0)
[2022-08-24 09:22] LABS: ALBUMIN 1.6 G/DL (3.2-5.2); ALKALINE PHOSPHATASE 98 U/L (46-116); ALT/SGPT 16 U/L (7.0-40); AST/SGOT 16 U/L (<34); BILIRUBIN,TOTAL 0.4 MG/DL (0.3-1.2); BLOOD UREA NITROGEN 9 MG/DL (9-23); CALCIUM LEVEL 8.9 MG/DL (8.3-10.6); CARBON DIOXIDE LEVEL 24 MMOL/L (20-31); CHLORIDE LEVEL 110 MMOL/L (98-107); CREATININE FOR GFR 0.81 MG/DL (0.70-1.30); GLOMERULAR FILTRATION RATE > 60.0 (>49); GLUCOSE, FASTING 179 MG/DL (74-106); SODIUM LEVEL 140 MMOL/L (136-145)
[2022-08-24 16:00] VITALS: BP 101/59
[2022-08-24] MEDS: RIVAROXABAN 20MG TAB (XARELTO) PO SCH (17:35)
[2022-08-24] MEDS: LIDOCAINE 4% TOPICAL SOLN 50 ML BTL TOP SCH (17:36)
[2022-08-25 07:45] VITALS: BP 104/57
[2022-08-25] MEDS: PANTOPRAZOLE 40MG TAB (PROTONIX) PO SCH (08:56)
[2022-08-25] MEDS: VANICREAM MOISTURIZING SKIN CREAM 113GM TUBE TOP SCH ×2 (08:56→19:42)
[2022-08-25] MEDS: DIGOXIN 0.25 MG TAB PO SCH (08:56)
[2022-08-25] MEDS: LACTOBACILLUS ACIDOPHILUS CAP (BACID) PO SCH ×2 (08:56→17:54)
[2022-08-25] MEDS: NYSTATIN 100,000 UNITS/GM TOPICAL PWD 15GM TOP SCH ×2 (08:57→19:44)
[2022-08-25 14:35] VITALS: BP 97/60
[2022-08-25] MEDS: RIVAROXABAN 20MG TAB (XARELTO) PO SCH (17:54)
[2022-08-26 06:46] VITALS: BP 106/57
[2022-08-26 08:00] VITALS: BP 105/56
[2022-08-26] MEDS: LACTOBACILLUS ACIDOPHILUS CAP (BACID) PO SCH ×2 (08:42→17:33)
[2022-08-26] MEDS: DIGOXIN 0.25 MG TAB PO SCH (08:43)
[2022-08-26] MEDS: PANTOPRAZOLE 40MG TAB (PROTONIX) PO SCH (08:43)
[2022-08-26] MEDS: NYSTATIN 100,000 UNITS/GM TOPICAL PWD 15GM TOP SCH ×2 (08:44→22:05)
[2022-08-26] MEDS: VANICREAM MOISTURIZING SKIN CREAM 113GM TUBE TOP SCH ×2 (08:44→22:06)
[2022-08-26 14:00] VITALS: BP 132/87
[2022-08-26] MEDS: RIVAROXABAN 20MG TAB (XARELTO) PO SCH (17:33)
[2022-08-26] MEDS: RAMELTEON 8 MG TAB (ROZEREM) PO PRN ×2 (21:53→22:06)
[2022-08-26] MEDS: ACETAMINOPHEN TAB 650MG DOSE (2X325MG) PO PRN ×2 (21:53→22:06)
[2022-08-27 05:04] VITALS: BP 127/69
[2022-08-27] MEDS: traMADol 50 MG TAB PO PRN ×2 (05:08→08:11)
[2022-08-27] MEDS: LACTOBACILLUS ACIDOPHILUS CAP (BACID) PO SCH ×2 (08:09→17:30)
[2022-08-27] MEDS: PANTOPRAZOLE 40MG TAB (PROTONIX) PO SCH (08:10)
[2022-08-27] MEDS: DIGOXIN 0.25 MG TAB PO SCH (08:10)
[2022-08-27] MEDS: NYSTATIN 100,000 UNITS/GM TOPICAL PWD 15GM TOP SCH ×2 (08:12→21:58)
[2022-08-27] MEDS: VANICREAM MOISTURIZING SKIN CREAM 113GM TUBE TOP SCH ×2 (08:12→21:58)
[2022-08-27] MEDS: PERCOCET 5MG/325MG TAB PO PRN (08:46)
[2022-08-27] MEDS: CALCIUM CARBONATE 500 MG CHEW U/D PO PRN (12:51)
[2022-08-27] MEDS: ONDANSETRON 4MG TAB PO PRN (15:32)
[2022-08-27] MEDS: RIVAROXABAN 20MG TAB (XARELTO) PO SCH (17:30)
[2022-08-28] VITALS (8 sets, daily range): BP systolic 87–111; BP diastolic 47–67
[2022-08-28] MEDS: DIGOXIN 0.25 MG TAB PO SCH (07:58)
[2022-08-28] MEDS: PANTOPRAZOLE 40MG TAB (PROTONIX) PO SCH (08:03)
[2022-08-28] MEDS: PERCOCET 5MG/325MG TAB PO PRN (08:03)
[2022-08-28] MEDS: LACTOBACILLUS ACIDOPHILUS CAP (BACID) PO SCH ×2 (08:03→18:50)
[2022-08-28] MEDS: NYSTATIN 100,000 UNITS/GM TOPICAL PWD 15GM TOP SCH ×2 (08:04→21:06)
[2022-08-28] MEDS: ONDANSETRON 4MG TAB PO PRN ×4 (08:04→21:08)
[2022-08-28] MEDS: VANICREAM MOISTURIZING SKIN CREAM 113GM TUBE TOP SCH ×2 (08:05→21:07)
[2022-08-28] MEDS: NS 1,000 ML IV SCH (16:18)
[2022-08-28] MEDS: RIVAROXABAN 20MG TAB (XARELTO) PO SCH (18:50)
[2022-08-28] MEDS ORDERED: NS 1,000 ML IV ONE (19:00)
[2022-08-28 19:59] LABS: BASO % 0.3 % (0.0-1.0); EOS # 0.1 10^3/uL (0.0-0.5); EOS % 0.5 % (0.0-3.0); HEMATOCRIT 33.9 % (42.0-52.0); HEMOGLOBIN 10.4 g/dl (13.5-17.5); LYMPH # 1.4 10^3/uL (1.5-5.0); LYMPH % 9.1 % (24.0-44.0); MEAN CORPUSCULAR HEMOGLOBIN 28.7 pg (27.0-33.0); MEAN CORPUSCULAR HGB CONC 30.7 g/dl (32.0-36.5); MEAN CORPUSCULAR VOLUME 93.4 fl (80.0-96.0); MONO # 0.7 10^3/uL (0.0-0.8); MONO % 4.5 % (2.0-8.0); NEUTROPHILS # 12.9 10^3/uL (1.5-8.5); NEUTROPHILS % 84.6 % (36.0-66.0); PLATELET COUNT, AUTOMATED 175 10^3/uL (150-450); RED BLOOD COUNT 3.63 10^6/uL (4.30-6.10); WHITE BLOOD COUNT 15.2 10^3/uL (4.0-10.0)
[2022-08-28 20:26] LABS: CALCIUM LEVEL 8.9 MG/DL (8.3-10.6); CREATININE FOR GFR 1.55 MG/DL (0.70-1.30); GLOMERULAR FILTRATION RATE 47.7 (>49); MAGNESIUM LEVEL 1.5 MG/DL (1.8-2.4); POTASSIUM SERUM 4.7 MMOL/L (3.5-5.1)
[2022-08-28] MEDS ORDERED: PIPERACILLIN/TAZOBACTAM SOD 4.5 GM in D5W MINI-BAG PLUS 50 ML IV SCH (20:45)
[2022-08-28] MEDS: MAG SULF 1GM/100ML (MAG RUN) 1 GM in IV 1 EA IV SCH ×2 (21:12→21:24)
[2022-08-28] MEDS: PIPERACILLIN/TAZOBACTAM SOD 4.5 GM in D5W MINI-BAG PLUS 50 ML IV SCH (21:24)
[2022-08-28] MEDS ORDERED: MIDODRINE 2.5 MG TAB PO ONE (22:00)
[2022-08-28] MEDS ORDERED: NS 500 ML IV ONE (23:55)
[2022-08-29] VITALS (35 sets, daily range): BP systolic 77–105; BP diastolic 48–59
[2022-08-29] MEDS: ACETAMINOPHEN TAB 650MG DOSE (2X325MG) PO PRN (01:15)
[2022-08-29] MEDS ORDERED: NS 1,000 ML IV ONE ×3 (01:20→13:35)
[2022-08-29] MEDS ORDERED: VANCOMYCIN HCL 1,000 MG, VIAL MATE ADAPTER 1 EACH in NS 250 ML IV ONE ×2 (02:00→03:00)
[2022-08-29] MEDS: NS 1,000 ML IV SCH ×2 (02:58→19:10)
[2022-08-29] MEDS ORDERED: NS 500 ML IV ONE (03:10)
[2022-08-29] MEDS: PIPERACILLIN/TAZOBACTAM SOD 4.5 GM in D5W MINI-BAG PLUS 50 ML IV SCH ×4 (05:06→23:29)
[2022-08-29 05:50] LABS: BASO % 0.4 % (0.0-1.0); EOS # 0.1 10^3/uL (0.0-0.5); EOS % 0.5 % (0.0-3.0); HEMATOCRIT 31.1 % (42.0-52.0); HEMOGLOBIN 9.5 g/dl (13.5-17.5); LYMPH # 1.2 10^3/uL (1.5-5.0); LYMPH % 11.4 % (24.0-44.0); MEAN CORPUSCULAR HEMOGLOBIN 28.7 pg (27.0-33.0); MEAN CORPUSCULAR HGB CONC 30.5 g/dl (32.0-36.5); MONO # 0.5 10^3/uL (0.0-0.8); MONO % 4.9 % (2.0-8.0); NEUTROPHILS # 8.9 10^3/uL (1.5-8.5); NEUTROPHILS % 81.2 % (36.0-66.0); PLATELET COUNT, AUTOMATED 154 10^3/uL (150-450); RED BLOOD COUNT 3.31 10^6/uL (4.30-6.10); WHITE BLOOD COUNT 10.9 10^3/uL (4.0-10.0)
[2022-08-29 06:09] LABS: CPK CREATINE PHOSPHOKINASE < 15 U/L (46-171)
[2022-08-29 06:10] LABS: BLOOD UREA NITROGEN 27 MG/DL (9-23); CALCIUM LEVEL 7.7 MG/DL (8.3-10.6); CARBON DIOXIDE LEVEL 23 MMOL/L (20-31); CHLORIDE LEVEL 108 MMOL/L (98-107); CREATININE FOR GFR 1.54 MG/DL (0.70-1.30); GLOMERULAR FILTRATION RATE 48.1 (>49); GLUCOSE, FASTING 103 MG/DL (74-106); POTASSIUM SERUM 4.4 MMOL/L (3.5-5.1); SODIUM LEVEL 139 MMOL/L (136-145)
[2022-08-29] MEDS: LACTOBACILLUS ACIDOPHILUS CAP (BACID) PO SCH ×2 (08:10→16:22)
[2022-08-29] MEDS: VANICREAM MOISTURIZING SKIN CREAM 113GM TUBE TOP SCH ×2 (08:11→20:53)
[2022-08-29] MEDS: NYSTATIN 100,000 UNITS/GM TOPICAL PWD 15GM TOP SCH ×2 (08:11→20:52)
[2022-08-29] MEDS: DIGOXIN 0.25 MG TAB PO SCH (08:11)
[2022-08-29] MEDS: PANTOPRAZOLE 40MG TAB (PROTONIX) PO SCH (08:11)
[2022-08-29] MEDS ORDERED: HYDROCORTISONE 100MG/2ML VIAL IV ONE (09:30)
[2022-08-29] MEDS: VANCOMYCIN HCL 750 MG, VIAL MATE ADAPTER 1 EACH in D5W 250 ML IV SCH (11:07)
[2022-08-30] VITALS (7 sets, daily range): BP systolic 93–120; BP diastolic 52–64
[2022-08-30] MEDS: VANCOMYCIN HCL 750 MG, VIAL MATE ADAPTER 1 EACH in D5W 250 ML IV SCH (00:10)
[2022-08-30] MEDS: PIPERACILLIN/TAZOBACTAM SOD 4.5 GM in D5W MINI-BAG PLUS 50 ML IV SCH ×4 (04:10→21:40)
[2022-08-30 04:30] LABS: HEMATOCRIT 31.4 % (42.0-52.0); HEMOGLOBIN 9.6 g/dl (13.5-17.5); MEAN CORPUSCULAR HEMOGLOBIN 28.4 pg (27.0-33.0); MEAN CORPUSCULAR HGB CONC 30.6 g/dl (32.0-36.5); MEAN CORPUSCULAR VOLUME 92.9 fl (80.0-96.0); PLATELET COUNT, AUTOMATED 160 10^3/uL (150-450); RED BLOOD COUNT 3.38 10^6/uL (4.30-6.10); WHITE BLOOD COUNT 9.6 10^3/uL (4.0-10.0)
[2022-08-30 04:55] LABS: ALBUMIN 1.2 G/DL (3.2-5.2); BILIRUBIN,TOTAL 0.3 MG/DL (0.3-1.2); CALCIUM LEVEL 8.2 MG/DL (8.3-10.6); CREATININE FOR GFR 1.56 MG/DL (0.70-1.30); GLOMERULAR FILTRATION RATE 47.4 (>49); POTASSIUM SERUM 4.2 MMOL/L (3.5-5.1); TOTAL PROTEIN 4.5 G/DL (5.7-8.2)
[2022-08-30] MEDS: NS 1,000 ML IV SCH ×3 (06:22→19:10)
[2022-08-30] MEDS: LACTOBACILLUS ACIDOPHILUS CAP (BACID) PO SCH ×2 (09:05→18:07)
[2022-08-30] MEDS: DIGOXIN 0.25 MG TAB PO SCH (09:05)
[2022-08-30] MEDS: PANTOPRAZOLE 40MG TAB (PROTONIX) PO SCH (09:05)
[2022-08-30] MEDS: VANICREAM MOISTURIZING SKIN CREAM 113GM TUBE TOP SCH ×2 (09:06→20:18)
[2022-08-30] MEDS: NYSTATIN 100,000 UNITS/GM TOPICAL PWD 15GM TOP SCH ×2 (09:06→20:18)
[2022-08-30] MEDS: PERCOCET 5MG/325MG TAB PO PRN ×2 (11:31→16:13)
[2022-08-30] MEDS ORDERED: VANCOMYCIN HCL 750 MG, VIAL MATE ADAPTER 1 EACH in D5W 250 ML IV SCH (12:00)
[2022-08-30] MEDS ORDERED: VANCOMYCIN HCL 500 MG in D5W MINI-BAG PLUS 100 ML IV SCH (13:00)
[2022-08-30] MEDS ORDERED: LIDOCAINE 1% MDV 20ML VIAL As Ordered ONE (14:25)
[2022-08-30 16:22] LABS: APPEARANCE, BODY FLUID HAZY (CLEAR); PLEURAL FL COLOR PALE YELLOW (COLORLESS); SOURCE, BODY FLUID PLEURAL
[2022-08-30 16:29] LABS: PH BODY FLUID 7.652 UNITS (NOT ESTABLISHED); SOURCE, BODY FLUID pH PLEURAL
[2022-08-30 16:57] LABS: SOURCE, BODY FLUID GLUCOSE PLEURAL
[2022-08-30 16:58] LABS: LDH, BODY FLUID 92 U/L (NOT ESTABLISHED); SOURCE, BODY FLUID LDH PLEURAL
[2022-08-30 16:59] LABS: AMYLASE, BODY FLUID 35 U/L (NOT ESTABLISHED); SOURCE, BODY FLUID AMYLASE PLEURAL; SOURCE, BODY FLUID TOT PROTEIN PLEURAL; TOTAL PROTEIN, BODY FLUID < 2.0 G/DL (NOT ESTABLISHED)
[2022-08-30] MEDS ORDERED: SODIUM CHLORIDE 0.9% INJ 10 ML SYR IV PRN (18:00)
[2022-08-30] MEDS: SODIUM CHLORIDE 0.9% INJ 10 ML SYR IV SCH (18:33)
[2022-08-31] VITALS (7 sets, daily range): BP systolic 85–115; BP diastolic 51–60
[2022-08-31] MEDS: NS 1,000 ML IV SCH ×3 (02:28→19:10)
[2022-08-31] MEDS: PIPERACILLIN/TAZOBACTAM SOD 4.5 GM in D5W MINI-BAG PLUS 50 ML IV SCH ×4 (03:48→22:00)
[2022-08-31] MEDS: PERCOCET 5MG/325MG TAB PO PRN ×3 (04:28→22:10)
[2022-08-31] MEDS: SODIUM CHLORIDE 0.9% INJ 10 ML SYR IV SCH ×2 (05:28→17:57)
[2022-08-31 05:45] LABS: HEMOGLOBIN 9.7 g/dl (13.5-17.5); MEAN CORPUSCULAR HEMOGLOBIN 28.1 pg (27.0-33.0); MEAN CORPUSCULAR HGB CONC 30.3 g/dl (32.0-36.5); MEAN CORPUSCULAR VOLUME 92.8 fl (80.0-96.0); PLATELET COUNT, AUTOMATED 175 10^3/uL (150-450); RED BLOOD COUNT 3.45 10^6/uL (4.30-6.10); WHITE BLOOD COUNT 10.1 10^3/uL (4.0-10.0)
[2022-08-31 06:19] LABS: ALBUMIN 1.2 G/DL (3.2-5.2); BILIRUBIN,TOTAL 0.4 MG/DL (0.3-1.2); CALCIUM LEVEL 8.2 MG/DL (8.3-10.6); CREATININE FOR GFR 1.52 MG/DL (0.70-1.30); GLOMERULAR FILTRATION RATE 48.8 (>49); POTASSIUM SERUM 4.2 MMOL/L (3.5-5.1); TOTAL PROTEIN 4.5 G/DL (5.7-8.2)
[2022-08-31] MEDS: PANTOPRAZOLE 40MG TAB (PROTONIX) PO SCH (08:40)
[2022-08-31] MEDS: DIGOXIN 0.25 MG TAB PO SCH (08:41)
[2022-08-31] MEDS: VANICREAM MOISTURIZING SKIN CREAM 113GM TUBE TOP SCH ×2 (08:41→20:55)
[2022-08-31] MEDS: NYSTATIN 100,000 UNITS/GM TOPICAL PWD 15GM TOP SCH ×2 (08:41→20:55)
[2022-08-31] MEDS: LACTOBACILLUS ACIDOPHILUS CAP (BACID) PO SCH ×2 (08:41→17:56)
[2022-08-31] MEDS: MIDODRINE 5 MG TAB PO SCH (17:56)
[2022-08-31] MEDS ORDERED: RIVAROXABAN 20MG TAB (XARELTO) PO SCH (18:00)
[2022-09-01] MEDS: NS 1,000 ML IV SCH ×3 (03:35→20:25)
[2022-09-01 04:00] VITALS: BP 90/57
[2022-09-01] MEDS: PIPERACILLIN/TAZOBACTAM SOD 4.5 GM in D5W MINI-BAG PLUS 50 ML IV SCH (04:59)
[2022-09-01] MEDS: SODIUM CHLORIDE 0.9% INJ 10 ML SYR IV SCH ×2 (06:47→17:43)
[2022-09-01 08:00] VITALS: BP 110/61
[2022-09-01] MEDS: MIDODRINE 5 MG TAB PO SCH ×2 (09:46→15:29)
[2022-09-01] MEDS: CEFDINIR 300 MG CAP (OMNICEF) PO SCH ×2 (09:46→22:53)
[2022-09-01] MEDS: NYSTATIN 100,000 UNITS/GM TOPICAL PWD 15GM TOP SCH ×2 (09:49→20:24)
[2022-09-01] MEDS: DIGOXIN 0.25 MG TAB PO SCH (09:49)
[2022-09-01] MEDS: PANTOPRAZOLE 40MG TAB (PROTONIX) PO SCH (09:49)
[2022-09-01] MEDS: LACTOBACILLUS ACIDOPHILUS CAP (BACID) PO SCH ×2 (09:50→17:42)
[2022-09-01] MEDS: VANICREAM MOISTURIZING SKIN CREAM 113GM TUBE TOP SCH ×2 (09:50→20:23)
[2022-09-01] MEDS: metroNIDAZOLE (FLAGYL) 500MG TABLET PO SCH ×3 (09:50→22:53)
[2022-09-01] MEDS: PERCOCET 5MG/325MG TAB PO PRN ×2 (10:26→17:42)
[2022-09-01 16:00] VITALS: BP 105/62
[2022-09-01 17:08] VITALS: BP 105/62
[2022-09-01] MEDS ORDERED: PHENAZOPYRIDINE 100 MG TAB PO PRN (17:40)
[2022-09-02] MEDS: NS 1,000 ML IV SCH ×2 (03:10→11:10)
[2022-09-02] MEDS: SODIUM CHLORIDE 0.9% INJ 10 ML SYR IV SCH (06:48)
[2022-09-02] MEDS: metroNIDAZOLE (FLAGYL) 500MG TABLET PO SCH (07:21)
[2022-09-02 08:00] VITALS: BP 108/66
[2022-09-02] MEDS: CEFDINIR 300 MG CAP (OMNICEF) PO SCH (09:07)
[2022-09-02] MEDS: NYSTATIN 100,000 UNITS/GM TOPICAL PWD 15GM TOP SCH (09:07)
[2022-09-02] MEDS: PANTOPRAZOLE 40MG TAB (PROTONIX) PO SCH (09:07)
[2022-09-02] MEDS: DIGOXIN 0.25 MG TAB PO SCH (09:07)
[2022-09-02] MEDS: VANICREAM MOISTURIZING SKIN CREAM 113GM TUBE TOP SCH (09:08)
[2022-09-02] MEDS: LACTOBACILLUS ACIDOPHILUS CAP (BACID) PO SCH (09:09)
[2022-09-02] MEDS: MIDODRINE 5 MG TAB PO SCH (09:09)
[2022-09-02] MEDS ORDERED: ATIV1TAB10 PO ×2 (09:48→10:33)
[2022-09-02] MEDS ORDERED: HYOS125TA PO (09:48)
[2022-09-02] MEDS ORDERED: MORP1SOL5 PO ×2 (09:48→10:33)
[2022-09-02] MEDS ORDERED: PYRI1TAB5 PO (10:04)
[2022-09-02] MEDS ORDERED: ONDA-84 PO (10:42)
[2022-09-02] MEDS ORDERED: ONDANSETRON 4MG TAB PO ONE (10:45)
== END 2022-09-02 11:13 | disposition hospice, inpatient (51) | DRG 871 ==
LOC: M ED 10:26 → M ED INP 15:13 → ENRESERV 15:34 → M PCU 17:45 → M MSPAV 08-25 14:28 → M ICU 08-29 03:36
PROVIDERS: ADMIT Internal Medicine; ATTEND Internal Medicine
PROC: B246ZZZ Ultrasonography of Right and Left Heart (ICD-10-PCS; 2022-08-14)
PROC: 0FB13ZX Excision of Right Lobe Liver, Percutaneous Approach, Diagnostic (ICD-10-PCS; 2022-08-17)
PROC: 0H9AXZZ Drainage of Inguinal Skin, External Approach (ICD-10-PCS; principal; 2022-08-18)
PROC: 02HV33Z Insertion of Infusion Device into Superior Vena Cava, Percutaneous Approach (ICD-10-PCS; 2022-08-30)
PROC: 0W993ZZ Drainage of Right Pleural Cavity, Percutaneous Approach (ICD-10-PCS; 2022-08-30)
DX: A41.9 Sepsis, unspecified organism (principal); J18.9 Pneumonia, unspecified organism; J96.01 Acute respiratory failure with hypoxia; L97.429 Non-pressure chronic ulcer of left heel and midfoot with unspecified severity; N39.0 Urinary tract infection, site not specified; Z68.42 Body mass index [BMI] 45.0-49.9, adult; C34.31 Malignant neoplasm of lower lobe, right bronchus or lung; C78.7 Secondary malignant neoplasm of liver and intrahepatic bile duct; C79.71 Secondary malignant neoplasm of right adrenal gland; C77.9 Secondary and unspecified malignant neoplasm of lymph node, unspecified; E87.0 Hyperosmolality and hypernatremia; E87.20 Acidosis, unspecified; N17.9 Acute kidney failure, unspecified; J90 Pleural effusion, not elsewhere classified; Z66 Do not resuscitate; E83.52 Hypercalcemia; E11.22 Type 2 diabetes mellitus with diabetic chronic kidney disease; E78.5 Hyperlipidemia, unspecified; E66.01 Morbid (severe) obesity due to excess calories; F17.210 Nicotine dependence, cigarettes, uncomplicated; K76.0 Fatty (change of) liver, not elsewhere classified; B96.20 Unspecified Escherichia coli [E. coli] as the cause of diseases classified elsewhere; I48.91 Unspecified atrial fibrillation; R19.7 Diarrhea, unspecified; I95.9 Hypotension, unspecified; T44.7X5A Adverse effect of beta-adrenoreceptor antagonists, initial encounter; Z20.822 Contact with and (suspected) exposure to COVID-19; Z79.84 Long term (current) use of oral hypoglycemic drugs; Z79.899 Other long term (current) drug therapy; Z79.02 Long term (current) use of antithrombotics/antiplatelets; Z90.49 Acquired absence of other specified parts of digestive tract; Z86.718 Personal history of other venous thrombosis and embolism; R65.20 Severe sepsis without septic shock; I77.1 Stricture of artery; E86.0 Dehydration; B37.2 Candidiasis of skin and nail; N18.30 Chronic kidney disease, stage 3 unspecified; E11.621 Type 2 diabetes mellitus with foot ulcer

== ENCOUNTER 2022-08-27 09:00 | Outpatient (RCR) | payer MEDICARE ==
[~2022-08-27 09:00] MED LIST: GLIP10TA18 PO; METF-838 PO; METO1TAB33 PO; XARE20TA PO
== END 2022-08-31 ==
LOC: M ONCR 09:00
PROVIDERS: ATTEND General Practice
DX: C34.31 Malignant neoplasm of lower lobe, right bronchus or lung (principal); C76.51 Malignant neoplasm of right lower limb